=== PATIENT | male | born 1965 | race Caucasian/White ===

== ENCOUNTER 2017-10-27 18:31 | Observation (INO) | payer BC ==
[2017-10-27] MEDS ORDERED: CLINDAMYCIN 600MG/50ML PREMIX 600 MG/50 ML BAG IVPB ONE (18:53)
[2017-10-27] MEDS: ACETAMINOPHEN 500 MG TABLET PO ONE (19:00)
[2017-10-27 19:03] LABS: BASO % 0.4 % (0-6); EOS % 1.7 % (0-6); GRAN % 66.1 % (47-80); HEMOGLOBIN 15.7 gm/dl (14.0-18.0); LYMPH % 19.4 % (16-45); MEAN CELL VOLUME 93.6 fl (81-97); MEAN CORPUSCULAR HEMOGLOBIN 32.6 pg (27-33); MEAN CORPUSCULAR HGB CONC 34.9 g/dl (32-36); MEAN PLATELET VOLUME 9.6 fl (7.4-10.4); MONO % 12.4 % (0-9); PLATELET COUNT 259 K/uL (130-400); RED BLOOD COUNT 4.81 M/uL (4.40-5.70); RED CELL DISTRIBUTION WIDTH 12.8 % (11.5-14.5); WHITE BLOOD COUNT W/O DIFF 10.4 K/uL (4.2-12.2)
[2017-10-27 19:15] LABS: BLOOD UREA NITROGEN 15 mg/dL (6-20); CREATININE 1.1 mg/dL (0.7-1.2); EST GLOMERULAR FILTRATION RATE > 60 mL/min
[2017-10-27 19:18] LABS: GLUCOSE,RANDOM 107 mg/dL (74-109)
[2017-10-27] MEDS ORDERED: DIPHENHYDRAMINE HCL 50 MG/ML VIAL IVP ONE (19:27)
[2017-10-27] MEDS ORDERED: METHYLPREDNISOLONE PF 125MG/VIAL IVP ONE (19:27)
[2017-10-27] MEDS ORDERED: IPRATROPIUM/ALBUTEROL (0.5MG/3MG) NEB INH ONE (19:27)
--- NOTE | 2017-10-27 19:42 | Emergency Department Record ---
History of Present Illness - General Chief complaint: Extremity Problem Stated complaint: LT ELBOW PAIN/SWELLING Time Seen by Provider: 10/27/17 18:42 Source: Patient Mode of Arrival: Ambulatory Limitations: No limitations - History of Present Illness Initial comments: pt fell a week ago scraping his arm. he has since started having more tender ness,swelling and erythema. MD Complaint: Extremity pain, Extremity swelling Onset/Timin -: Week(s) Location: Left, Elbow History of Same: No Radiation: Proximal, Distal Severity scale (1-10): 8 Quality: Aching Consistency: Constant Improves with: Nothing Worsens with: Nothing Associated Symptoms: Fever - Related Data Home Medications Medication Instructions Recorded Confirmed Last Taken Allopurinol 300 mg PO DAILY 10/27/17 10/27/17 Unknown Montelukast Sodium [Singulair] 10 mg PO DAILY 10/27/17 10/27/17 Unknown Allergies Allergy/AdvReac Type Severity Reaction Status Date / Time cephalexin Allergy Mild RASH Verified 10/27/17 18:59 Travel Screening - Travel/Exposure Within Last 30 Days Have you traveled within the last 30 days?: No Review of Systems Reviewed: No additional complaints except as noted below Constitutional: Reports: As per HPI. Denies: Chills, Fever, Malaise, Night sweats, Weakness, Weight change Eyes: Reports: As per HPI. Denies: Eye discharge, Eye pain, Photophobia, Vision change ENT: Reports: As per HPI. Denies: Congestion, Dental pain, Ear pain, Epistaxis , Hearing loss, Throat pain Respiratory: Reports: As per HPI. Denies: Cough, Dyspnea, Hemoptysis, Stridor, Wheezes Cardiovascular: Reports: As per HPI. Denies: Arrhythmia, Chest pain, Dyspnea on exertion, Edema, Murmurs, Orthopnea, Palpitations, Paroxysmal nocturnal dyspnea, Rheumatic Fever, Syncope Endocrine: Reports: As per HPI. Denies: Fatigue, Heat or cold intolerance, Polydipsia, Polyuria Gastrointestinal: Reports: As per HPI. Denies: Abdominal pain, Constipation, Diarrhea, Hematemesis, Hematochezia, Melena, Nausea, Vomiting Genitourinary: Reports: As per HPI. Denies: Dysuria, Frequency, Hematuria, Incontinence, Retention, Testicular pain, Testicular mass, Urgency Musculoskeletal: Reports: As per HPI. Denies: Arthralgia, Back pain, Gout, Joint swelling, Myalgia, Neck pain Skin: Reports: As per HPI. Denies: Bruising, Change in color, Change in hair/ nails, Lesions, Pruritus, Rash Neurological: Reports: As per HPI. Denies: Abnormal gait, Confusion, Headache, Numbness, Paresthesias, Seizure, Tingling, Tremors, Vertigo, Weakness Psychiatric: Reports: As per HPI. Denies: Anxiety, Auditory hallucinations, Depression, Homicidal thoughts, Suicidal thoughts, Visual hallucinations Hematological/Lymphatic: Reports: As per HPI. Denies: Anemia, Blood Clots, Easy bleeding, Easy bruising, Swollen glands Past Medical History - SOCIAL HISTORY Smoking Status: Never smoker Alcohol Use: None Drug Use: None - RESPIRATORY Hx Respiratory Disorders: Yes Comment:: seasonal allergies - CARDIOVASCULAR Hx Cardio Disorders: No - NEURO Hx Neuro Disorders: No - GI Hx GI Disorders: No - Hx Genitourinary Disorders: Yes Hx Kidney Stones: Yes - ENDOCRINE Hx Endocrine Disorders: No - MUSCULOSKELETAL Hx Musculoskeletal Disorders: Yes Hx Gout: Yes - PSYCH Hx Psych Problems: No - HEMATOLOGY/ONCOLOGY Hx Hematology/Oncology Disorders: No Family Medical History Any Significant Family History?: Yes Hx Heart Disease: Father, Mother Hx Resp Disorders: Mother Physical Exam - General General Appearance: Alert, Oriented x3, Cooperative, Mild distress - Head Head exam: Normal inspection - Eye Eye exam: Normal appearance, PERRL, EOMI Pupils: Normal accommodation - ENT ENT exam: Normal exam, Mucous membranes moist, Normal external ear exam, Normal orophraynx Ear exam: Normal external inspection. negative: External canal tenderness Nasal Exam: Normal inspection. negative: Discharge, Sinus tenderness Mouth exam: Normal external inspection, Tongue normal Teeth exam: Normal inspection. negative: Dental caries Throat exam: Normal inspection. negative: Tonsillar erythema, Tonsillar exudate - Neck Neck exam: Normal inspection, Full ROM. negative: Tenderness - Respiratory Respiratory exam: Normal lung sounds bilaterally. negative: Respiratory distress - Cardiovascular Cardiovascular Exam: Regular rate, Normal rhythm, Normal heart sounds - GI/Abdominal GI/Abdominal exam: Soft, Normal bowel sounds. negative: Tenderness - Rectal Rectal exam: Deferred - exam: Deferred - Extremities Extremities exam: Full ROM, Normal capillary refill, Tenderness Image of Full Body: 1 - erythema - Back Back exam: Reports: Normal inspection, Full ROM. Denies: Muscle spasm, Rash noted, Tenderness - Neurological Neurological exam: Alert, CN II-XII intact, Normal gait, Oriented X3 - Psychiatric Psychiatric exam: Normal affect, Normal mood - Skin Skin exam: Dry, Erythema, Intact, Normal color, Rash, Warm Type of lesion: Rash Distribution of rash: LUE Description of rash: Swelling, Tenderness Course Vital Signs 10/27/17 18:35 Temperature 100.3 F H Pulse Rate 80 Respiratory 20 Rate Blood Pressure 132/77 Pulse Ox 96 Medical Decision Making - Lab Data Result diagrams: 10/27/17 18:56 10/27/17 18:56 Lab Results 10/27/17 10/27/17 Range/Units 18:56 18:56 WBC 10.4 (4.2-12.2) K/uL RBC 4.81 (4.40-5.70) M/uL Hgb 15.7 (14.0-18.0) gm/dl Hct 45.0 (42.0-52.0) % MCV 93.6 (81-97) fl MCH 32.6 (27-33) pg MCHC 34.9 (32-36) g/dl RDW 12.8 (11.5-14.5) % Plt Count 259 (130-400) K/uL MPV 9.6 (7.4-10.4) fl Gran % 66.1 (47-80) % Lymphocytes % 19.4 (16-45) % Monocytes % 12.4 H (0-9) % Eosinophils % 1.7 (0-6) % Basophils % 0.4 (0-6) % Sodium 142 (136-145) mmol/L Potassium 4.0 (3.4-4.5) mmol/L Chloride 98 (98-107) mmol/L Carbon Dioxide 29.0 (22-29) mmol/L Anion Gap 15.0 (7-16) BUN 15 (6-20) mg/dL Creatinine 1.1 (0.7-1.2) mg/dL Estimated GFR > 60 mL/min Calcium 9.2 (8.6-10.0) mg/dL Disposition Disposition: Admit Clinical Impression: Cellulitis of arm, left Disposition: Still a Patient at [facility] Decision to Admit: Admit from ER Decision to Admit Date: 10/27/17 Decision to Admit Time: 19:46 Quality - Quality Measures Quality Measures: N/A - Blood Pressure Screening Does Patient Have Any of the Following: No Blood Pressure Classification: Pre-Hypertensive BP Reading Systolic Measurement: 132 Diastolic Measurement: 77 Screening for High Blood Pressure: < Pre-Hypertensive BP, F/U Documented > [ [id number]] Pre-Hypertensive Follow-up Interventions: Follow-up with rescreen every year.
[2017-10-27] MEDS ORDERED: KETOROLAC 30 MG/ML VIAL IVP ONE (19:45)
[2017-10-27] MEDS ORDERED: TEMAZEPAM 15 MG CAPSULE PO PRN (20:38)
[2017-10-27] MEDS ORDERED: ACETAMINOPHEN 500 MG TABLET PO PRN (20:38)
[2017-10-27] MEDS: CLINDAMYCIN 600MG/50ML PREMIX 600 MG/50 ML BAG IVPB SCH (21:52)
[2017-10-28] MEDS: CLINDAMYCIN 600MG/50ML PREMIX 600 MG/50 ML BAG IVPB SCH (04:29)
[2017-10-28] MEDS ORDERED: HYDROCODONE/APAP 5/325MG TABLET PO ONE (08:24)
[2017-10-28] MEDS ORDERED: PIPERACILLIN SODIUM/TAZOBACTAM 4.5 GM in 0.9 % SODIUM CHLORIDE 100ML 100 ML IVPB ONE (09:15)
[2017-10-28] MEDS ORDERED: HYDROCODONE/APAP 5/325MG TABLET PO PRN ×2 (09:38→09:40)
[2017-10-28] MEDS: KETOROLAC 30 MG/ML VIAL IVP PRN ×2 (09:52→18:52)
[2017-10-28] MEDS: MONTELUKAST SODIUM 10MG TABLET PO SCH (09:52)
[2017-10-28] MEDS: ALLOPURINOL 100 MG TAB PO SCH (09:52)
[2017-10-28] MEDS: VANCOMYCIN HCL 1,000 MG in DEXTROSE 5 % IN WATER 250 ML IVPB SCH ×4 (09:53→18:22)
--- NOTE | 2017-10-28 10:17 | History & Physical ---
History of Present Illness - Date of Service Date of Service for History & Physical: 10/28/17 - History of Present Illness Admitting Diagnosis: cellulitis History of Present Illness: 51 yo male admitted for cellulitis left arm. PMH gout and asthma. Pt reports a fall at work 1 wek ago (refused this as a worker's comp), scraped his left arm on the stairs at work. 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 (concerns for aerobic and anaerobic infection) Pt presented to ER wit red, swollen, painful left FA and fever with mild drainage. 100.3F, HR 80, BP 132/77, 96% RA, pain 8/10. WBC 10.4, Hgb 15.7, Hct 45, plt 259 NA 142, K 4, Cl 98, CO2 29, BUN 15, creatinine 1.1, GFR >60, glucose 107 Blood cultures x2, wound culture pending Left FA XR negative for FX or FB (audio clip and xray reviewed) Pt given toradol 30mg IVP in ER and started on Clindamycin 600m IVPB 10/28/17 POC changing r/t concerns for aerobic and anaerobic infection. Pt starting Zosyn 4.5gm q8hr and Vancomycin 1gm q8hr, inpt probably 2 days for IV ABX and then transition to PO for 1 week after d/c. Toradol 30mg IVP q8hr PRN, [place] 5/325 1-2 tab q6 hrPRN for pain Repeat CBC and BMP, vanco trough in the AM, VS q 4 hrs Awaiting culture results. PCP Noel Travel Screening - Travel/Exposure Within Last 30 Days Have you traveled within the last 30 days?: No - Travel/Exposure Within Last Year Have you traveled outside the [place] in the last year?: No Location Detail:: just over a year ago, visited [place] - Additonal Travel Details Have you been exposed to anyone with a communicable illness?: No - Travel Symptoms Symptom Screening: Fever (Subjective), Headache, Weakness, Fatigue Review of Systems Constitutional: Reports: As per HPI, Fever. Denies: Chills, Malaise, Night sweats, Weakness, Weight change Eyes: Reports: As per HPI. Denies: Eye discharge, Eye pain, Photophobia, Vision change ENT: Reports: As per HPI. Denies: Congestion, Dental pain, Ear pain, Epistaxis , Hearing loss, Throat pain Respiratory: Reports: As per HPI. Denies: Cough, Dyspnea, Hemoptysis, Stridor, Wheezes Cardiovascular: Reports: As per HPI. Denies: Arrhythmia, Chest pain, Dyspnea on exertion, Edema, Murmurs, Orthopnea, Palpitations, Paroxysmal nocturnal dyspnea, Rheumatic Fever, Syncope Endocrine: Reports: As per HPI. Denies: Fatigue, Heat or cold intolerance, Polydipsia, Polyuria Gastrointestinal: Reports: As per HPI. Denies: Abdominal pain, Constipation, Diarrhea, Hematemesis, Hematochezia, Melena, Nausea, Vomiting Genitourinary: Reports: As per HPI. Denies: Dysuria, Frequency, Hematuria, Incontinence, Retention, Testicular pain, Testicular mass, Urgency Musculoskeletal: Reports: As per HPI. Denies: Arthralgia, Back pain, Gout, Joint swelling, Myalgia, Neck pain Skin: Reports: As per HPI. Denies: Bruising, Change in color, Change in hair/ nails, Lesions, Pruritus, Rash Neurological: Reports: As per HPI. Denies: Abnormal gait, Confusion, Headache, Numbness, Paresthesias, Seizure, Tingling, Tremors, Vertigo, Weakness Psychiatric: Reports: As per HPI. Denies: Anxiety, Auditory hallucinations, Depression, Homicidal thoughts, Suicidal thoughts, Visual hallucinations Hematological/Lymphatic: Reports: As per HPI. Denies: Anemia, Blood Clots, Easy bleeding, Easy bruising, Swollen glands Past Medical History - SOCIAL HISTORY Smoking Status: Never smoker Alcohol Use: None Drug Use: None - RESPIRATORY Hx Respiratory Disorders: Yes Comment:: seasonal allergies - CARDIOVASCULAR Hx Cardio Disorders: No - NEURO Hx Neuro Disorders: No - GI Hx GI Disorders: No - Hx Genitourinary Disorders: Yes Hx Kidney Stones: Yes - ENDOCRINE Hx Endocrine Disorders: No - MUSCULOSKELETAL Hx Musculoskeletal Disorders: Yes Hx Gout: Yes - PSYCH Hx Psych Problems: No - HEMATOLOGY/ONCOLOGY Hx Hematology/Oncology Disorders: No Family Medical History Any Significant Family History?: Yes Hx Heart Disease: Father, Mother Hx Resp Disorders: Mother H&P Meds/Allergies - Allergies Allergies: Allergies Allergy/AdvReac Type Severity Reaction Status Date / Time cephalexin Allergy Mild RASH Verified 10/27/17 18:59 - Home Medications Home Medications Medication Instructions Recorded Confirmed Last Taken Allopurinol 300 mg PO DAILY 10/27/17 10/27/17 Unknown Montelukast Sodium [Singulair] 10 mg PO DAILY 10/27/17 10/27/17 Unknown - Active Medications Active Medications: Current Medications Hydrocodone Bitart/Acetaminophen ([place] 5mg/325mg) 1 each PO Q6H PRN PRN Reason: PAIN - MILD TO MODERATE (1-7) Stop: 10/31/17 13:00 Hydrocodone Bitart/Acetaminophen ([place] 5mg/325mg) 2 each PO Q6H PRN PRN Reason: PAIN - MOD TO SEVERE (5-10) Stop: 10/31/17 13:00 Allopurinol (Zyloprim) 300 mg PO DAILY [facility] Vancomycin HCl 1,000 mg/ (Dextrose) 250 mls @ 250 mls/hr IVPB Q8H [facility] Stop: 11/02/17 10:01 Piperacillin Sod/Tazobactam (Sod 4.5 gm/ Sodium Chloride) 100 mls @ 200 mls/hr IVPB Q8H [facility]SD[facility] Ketorolac Tromethamine (Toradol) 30 mg IVP Q8H PRN PRN Reason: PAIN - MILD TO MODERATE (1-7) Stop: 10/31/17 13:00 Montelukast Sodium (Singulair) 10 mg PO DAILY [facility] Temazepam (Restoril) 15 mg PO QHS PRN PRN Reason: INSOMNIA Physical Exam - Vital Signs Vital Signs: Vital Signs - Last 24 Hrs Temp Pulse Pulse Resp BP BP Pulse Ox 10/28/17 04:00 99 F 62 18 120/70 95 10/27/17 21:00 72 18 10/27/17 20:02 100.1 F H 72 18 142/81 94 L 10/27/17 20:01 100.0 F H 72 20 152/79 96 10/27/17 18:35 100.3 F H 80 20 132/77 96 - General General Appearance: Alert, Oriented x3, Cooperative, Mild distress Limitations: No limitations - Head Head exam: Normal inspection - Eye Eye exam: Normal appearance, PERRL, EOMI Pupils: Normal accommodation - ENT ENT exam: Normal exam, Mucous membranes moist, Normal external ear exam, Normal orophraynx Ear exam: Normal external inspection. negative: External canal tenderness Nasal Exam: Normal inspection. negative: Discharge, Sinus tenderness Mouth exam: Normal external inspection, Tongue normal Teeth exam: Normal inspection. negative: Dental caries Throat exam: Normal inspection. negative: Tonsillar erythema, Tonsillar exudate - Neck Neck exam: Normal inspection, Full ROM. negative: Tenderness - Respiratory Respiratory exam: Normal lung sounds bilaterally. negative: Respiratory distress - Cardiovascular Cardiovascular Exam: Regular rate, Normal rhythm, Normal heart sounds Peripheral Pulses: 2+: Radial (R), Radial (L) - GI/Abdominal GI/Abdominal exam: Soft, Normal bowel sounds. negative: Tenderness - Rectal Rectal exam: Deferred - exam: Deferred - Extremities Extremities exam: Full ROM, Normal capillary refill, Tenderness - Back Back exam: Reports: Normal inspection, Full ROM. Denies: Muscle spasm, Rash noted, Tenderness - Neurological Neurological exam: Alert, CN II-XII intact, Normal gait, Oriented X3 - Psychiatric Psychiatric exam: Normal affect, Normal mood - Skin Skin exam: Dry, Erythema, Intact, Normal color, Warm Type of lesion: abrasion (left FA, ant and post), Rash Distribution of rash: LUE Description of rash: Erythematous, Swelling, Tenderness Results - Labs Result Diagrams: 10/27/17 18:56 10/27/17 18:56 Labs Last 24 Hours: Laboratory Results - last 24 hr 10/27/17 10/27/17 18:56 18:56 WBC 10.4 RBC 4.81 Hgb 15.7 Hct 45.0 MCV 93.6 MCH 32.6 MCHC 34.9 RDW 12.8 Plt Count 259 MPV 9.6 Gran % 66.1 Lymphocytes % 19.4 Monocytes % 12.4 H Eosinophils % 1.7 Basophils % 0.4 Sodium 142 Potassium 4.0 Chloride 98 Carbon Dioxide 29.0 Anion Gap 15.0 BUN 15 Creatinine 1.1 Estimated GFR > 60 Random Glucose 107 Calcium 9.2 VTE H&P Assessment - Risk for VTE Risk for VTE: Yes Risk Level: Low Risk Assessment Date: 10/28/17 Risk Assessment Time: 10:20 VTE Orders Placed or Will Be Placed: Yes Plan - Detailed Diagnosis and Plan (1) Cellulitis of arm, left Current Visit: Yes Status: Acute Base Code: L03.114 - CELLULITIS OF LEFT UPPER LIMB Comment: 10/28/17 -Cellulitis of left forearm -mild discharge, moderate edema, erythema, warmth and tenderness -area marked with skin marker, maintain elevation -IV ABX changed from clindamycin to Zosyn 4.5gm q8 and Vancomycin 1gm q8 r/t potential aerobic and anaerobic bacteria from water treatement plant (2) Full code status Current Visit: Yes Status: Acute Base Code: Z78.9 - OTHER SPECIFIED HEALTH STATUS Comment: 10/28/17 full code status
--- NOTE | 2017-10-28 10:28 | Inpatient Certification ---
Inpatient Certification Admit to inpatient care: Based on my medical assessment, after consideration of patient's risk factors (age, co-morbidities and patient presenting symptoms and acuity), I expect that this patient will remain in the hospital greater than or equal to two midnights and that the services needed warrant inpatient care because: Patient Risk Factors: cellulitis requiring IV ABX Estimated length of stay: The patient may reasonably be expected to be discharged or transferred to a hospital within 96 hours after admission to [facility]. Services needed: IV abx administration, wound assessment, repeat labs Post hospital care (if known): [] I certify that my determination is in accordance with my understanding of Medicare requirements for reasonable and necessary inpatient services. 10/28/17 10:25
[2017-10-28] MEDS: PIPERACILLIN SODIUM/TAZOBACTAM 4.5 GM in 0.9 % SODIUM CHLORIDE 100ML 100 ML IVPB SCH (17:43)
[2017-10-28] MEDS ORDERED: ACETAMINOPHEN 500 MG TABLET PO PRN (17:45)
[2017-10-28] MEDS: ACETAMINOPHEN 500 MG TABLET PO ONE (17:46)
[2017-10-29] MEDS: PIPERACILLIN SODIUM/TAZOBACTAM 4.5 GM in 0.9 % SODIUM CHLORIDE 100ML 100 ML IVPB SCH ×3 (01:11→18:23)
[2017-10-29] MEDS: VANCOMYCIN HCL 1,000 MG in DEXTROSE 5 % IN WATER 250 ML IVPB SCH ×6 (01:57→19:05)
[2017-10-29] MEDS: ALLOPURINOL 100 MG TAB PO SCH (09:20)
[2017-10-29 09:47] LABS: BASO % 0.5 % (0-6); EOS % 3.2 % (0-6); GRAN % 65.5 % (47-80); HEMATOCRIT 46.9 % (42.0-52.0); HEMOGLOBIN 16.2 gm/dl (14.0-18.0); LYMPH % 21.5 % (16-45); MEAN CORPUSCULAR HEMOGLOBIN 32.5 pg (27-33); MEAN CORPUSCULAR HGB CONC 34.5 g/dl (32-36); MEAN PLATELET VOLUME 9.3 fl (7.4-10.4); MONO % 9.3 % (0-9); PLATELET COUNT 270 K/uL (130-400); RED BLOOD COUNT 4.99 M/uL (4.40-5.70); RED CELL DISTRIBUTION WIDTH 12.9 % (11.5-14.5); WHITE BLOOD COUNT W/O DIFF 6.5 K/uL (4.2-12.2)
--- NOTE | 2017-10-29 09:52 | Physician Progress Note ---
Subjective - Date Date of Physician Progress Note: 10/30/17 - Subjective Location: Left, Upper extremity Radiation: Non-Radiating Objective - Vital Signs Vital Signs: Vital Signs - Last 24 Hrs Temp Pulse Resp BP Pulse Ox 10/29/17 09:12 98.1 F 70 18 126/70 97 10/29/17 06:00 97.7 F 57 L 18 128/84 96 10/29/17 01:00 98.1 F 56 L 18 110/66 96 10/28/17 20:00 97.7 F 64 18 135/70 97 10/28/17 18:00 98.0 F 78 18 138/72 96 10/28/17 14:00 98.1 F 82 18 144/76 98 10/28/17 10:00 97.8 F 86 18 134/68 97 - General General Appearance: Alert, Oriented x3, Cooperative, No acute distress Limitations: No limitations - Head Head exam: Normal inspection - Eye Eye exam: Normal appearance, PERRL, EOMI Pupils: Normal accommodation - ENT ENT exam: Normal exam, Mucous membranes moist, Normal external ear exam, Normal orophraynx Ear exam: Normal external inspection. negative: External canal tenderness Nasal Exam: Normal inspection. negative: Discharge, Sinus tenderness Mouth exam: Normal external inspection, Tongue normal Teeth exam: Normal inspection. negative: Dental caries Throat exam: Normal inspection. negative: Tonsillar erythema, Tonsillar exudate - Neck Neck exam: Normal inspection, Full ROM. negative: Tenderness - Respiratory Respiratory exam: Normal lung sounds bilaterally. negative: Respiratory distress - Cardiovascular Cardiovascular Exam: Regular rate, Normal rhythm, Normal heart sounds Peripheral Pulses: 2+: Radial (R), Radial (L) - GI/Abdominal GI/Abdominal exam: Soft, Normal bowel sounds. negative: Tenderness - Rectal Rectal exam: Deferred - exam: Deferred - Extremities Extremities exam: Full ROM, Normal capillary refill, Tenderness - Back Back exam: Reports: Normal inspection, Full ROM. Denies: Muscle spasm, Rash noted, Tenderness - Neurological Neurological exam: Alert, CN II-XII intact, Normal gait, Oriented X3 - Psychiatric Psychiatric exam: Normal affect, Normal mood - Skin Skin exam: Dry, Erythema, Intact, Normal color, Warm Type of lesion: abrasion (left FA, ant and post), Rash Distribution of rash: LUE Description of rash: Erythematous, Swelling, Tenderness - Other Other Exam Information: repeat examination of left FA shows improvement in erythema, swelling and pain. Drainage has decreased in the past 24 hours. Pt is tolerating IV ABX. Erythema has receded well behind the previous skin markings, mild redness and warmth remains. Assessment and Plan - Assessment and Plan (1) Cellulitis of arm, left Current Visit: Yes Status: Acute Base Code: L03.114 - CELLULITIS OF LEFT UPPER LIMB Comment: 10/28/17 -Cellulitis of left forearm -mild discharge, moderate edema, erythema, warmth and tenderness -area marked with skin marker, maintain elevation -IV ABX changed from clindamycin to Zosyn 4.5gm q8 and Vancomycin 1gm q8 r/t 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 -if tolerant of the PO abx and continued improvment in symptoms, d/c tomorrow AM 10/30/17 -pt continues to improve but mild erythema and swelling remains on lateral FA -pt has normal ROM, no tingling -preliminary BC results have no growth, wound culture klebsiella -AM dose of Zosyn IV ABX and then d/c with augmentin and bactrim BID x14 days ( pt has tolerated both meds previously), d/c vanco r/t culture results -f/u with new PCP [facility] 11/25/17 (2) Full code status Current Visit: Yes Status: Acute Base Code: Z78.9 - OTHER SPECIFIED HEALTH STATUS Comment: 10/30/17 full code status Results - Labs Result Diagrams: 10/29/17 09:40 10/29/17 09:40 DVT/PE Assessment - Risk for VTE Risk for VTE: No Risk Level: Low Risk Assessment Date: 10/28/17 Risk Assessment Time: 10:20 VTE Orders Placed or Will Be Placed: Yes - Active Medicaitons Current Medications: Current Medications Acetaminophen (Tylenol 500mg Tab) 500 mg PO Q6H PRN PRN Reason: PAIN - MILD (1-4) Stop: 10/31/17 13:00 Hydrocodone Bitart/Acetaminophen ([place] 5mg/325mg) 1 each PO Q6H PRN PRN Reason: PAIN - MILD TO MODERATE (1-7) Stop: 10/31/17 13:00 Hydrocodone Bitart/Acetaminophen ([place] 5mg/325mg) 2 each PO Q6H PRN PRN Reason: PAIN - MOD TO SEVERE (5-10) Stop: 10/31/17 13:00 Allopurinol (Zyloprim) 300 mg PO DAILY [facility] Last Admin: 10/29/17 09:20 Dose: 300 mg Enoxaparin Sodium (Lovenox) 40 mg SQ DAILY [facility] Vancomycin HCl 1,000 mg/ (Dextrose) 250 mls @ 250 mls/hr IVPB Q8H [facility] Stop: 11/02/17 10:01 Last Infusion: 10/29/17 04:17 Dose: Infused Piperacillin Sod/Tazobactam (Sod 4.5 gm/ Sodium Chloride) 100 mls @ 200 mls/hr IVPB Q8H [facility] Last Admin: 10/29/17 09:21 Dose: 200 mls/hr Ketorolac Tromethamine (Toradol) 30 mg IVP Q8H PRN PRN Reason: PAIN - MILD TO MODERATE (1-7) Stop: 10/31/17 13:00 Last Admin: 10/28/17 18:52 Dose: 30 mg Montelukast Sodium (Singulair) 10 mg PO DAILY [facility] Last Admin: 10/28/17 09:52 Dose: 10 mg Temazepam (Restoril) 15 mg PO QHS PRN PRN Reason: INSOMNIA AMI Plan - Labs Result Diagrams: 10/29/17 09:40 10/29/17 09:40
[2017-10-29 10:14] LABS: BLOOD UREA NITROGEN 15 mg/dL (6-20); CREATININE 0.9 mg/dL (0.7-1.2); EST GLOMERULAR FILTRATION RATE > 60 mL/min; GLUCOSE,RANDOM 130 mg/dL (74-109); VANCOMYCIN TROUGH 11.6 ug/mL (5.0-10.0)
[2017-10-29] MEDS: MONTELUKAST SODIUM 10MG TABLET PO SCH (10:59)
[2017-10-29] MEDS: ENOXAPARIN 40 MG/0.4 ML SYR SQ SCH (11:00)
[2017-10-29] MEDS: KETOROLAC 30 MG/ML VIAL IVP PRN (12:53)
[2017-10-30] MEDS: PIPERACILLIN SODIUM/TAZOBACTAM 4.5 GM in 0.9 % SODIUM CHLORIDE 100ML 100 ML IVPB SCH ×2 (01:39→09:18)
[2017-10-30] MEDS: KETOROLAC 30 MG/ML VIAL IVP PRN (01:40)
[2017-10-30] MEDS: VANCOMYCIN HCL 1,000 MG in DEXTROSE 5 % IN WATER 250 ML IVPB SCH ×2 (02:18)
--- NOTE | 2017-10-30 09:02 | Discharge Summary ---
Providers Discharge Summary Date: 10/30/17 Date of admission: 10/27/17 20:24 Expected Date of Discharge: 10/30/17 Attending physician: MAMIE CASTILLO Primary care physician: HAYDEN VENTURA II, D.O. Physical Exam - Vital Signs Vital Signs: Vital Signs - Last 24 Hrs Temp Pulse Resp BP Pulse Ox 10/30/17 08:01 61 16 10/30/17 06:00 98.1 F 59 L 16 114/75 97 10/29/17 22:00 98.3 F 63 16 127/76 98 10/29/17 18:00 97.7 F 63 16 131/79 99 10/29/17 14:00 97.9 F 61 18 136/76 97 10/29/17 09:12 98.1 F 70 18 126/70 97 - General General Appearance: Alert, Oriented x3, Cooperative, No acute distress Limitations: No limitations - Head Head exam: Normal inspection - Eye Eye exam: Normal appearance, PERRL, EOMI Pupils: Normal accommodation - ENT ENT exam: Normal exam, Mucous membranes moist, Normal external ear exam, Normal orophraynx Ear exam: Normal external inspection. negative: External canal tenderness Nasal Exam: Normal inspection. negative: Discharge, Sinus tenderness Mouth exam: Normal external inspection, Tongue normal Teeth exam: Normal inspection. negative: Dental caries Throat exam: Normal inspection. negative: Tonsillar erythema, Tonsillar exudate - Neck Neck exam: Normal inspection, Full ROM. negative: Tenderness - Respiratory Respiratory exam: Normal lung sounds bilaterally. negative: Respiratory distress - Cardiovascular Cardiovascular Exam: Regular rate, Normal rhythm, Normal heart sounds Peripheral Pulses: 2+: Radial (R), Radial (L) - GI/Abdominal GI/Abdominal exam: Soft, Normal bowel sounds. negative: Tenderness - Rectal Rectal exam: Deferred - exam: Deferred - Extremities Extremities exam: Full ROM, Normal capillary refill, Tenderness - Back Back exam: Reports: Normal inspection, Full ROM. Denies: Muscle spasm, Rash noted, Tenderness - Neurological Neurological exam: Alert, CN II-XII intact, Normal gait, Oriented X3 - Psychiatric Psychiatric exam: Normal affect, Normal mood - Skin Skin exam: Dry, Erythema, Intact, Normal color, Warm Type of lesion: abrasion (left FA, ant and post), Rash Distribution of rash: LUE Description of rash: Erythematous, Swelling, Tenderness Hospitalization - Hospitalization Admission Diagnosis: cellulitis - Problem List/Discharge Diagnosis (1) Cellulitis of arm, left Current Visit: Yes Status: Acute Base Code: L03.114 - CELLULITIS OF LEFT UPPER LIMB Comment: 10/28/17 -Cellulitis of left forearm -mild discharge, moderate edema, erythema, warmth and tenderness -area marked with skin marker, maintain elevation -IV ABX changed from clindamycin to Zosyn 4.5gm q8 and Vancomycin 1gm q8 r/t 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 -if tolerant of the PO abx and continued improvment in symptoms, d/c tomorrow AM 10/30/17 -pt continues to improve but mild erythema and swelling remains on lateral FA -pt has normal ROM, no tingling -preliminary BC results have no growth, wound culture klebsiella and enterococcus -AM dose of Zosyn and vanco IV ABX and then d/c with augmentin and bactrim BID x14 days (pt has tolerated both meds previously) -f/u with new PCP [facility] 11/25/17 (2) Full code status Current Visit: Yes Status: Acute Base Code: Z78.9 - OTHER SPECIFIED HEALTH STATUS Comment: 10/30/17 full code status - Disposition Keep the wound clean and dry. Covered at all times when at work, change twice a day and as needed if saturated. Follow up/new pt appt November 25 [facility] If you have increased redness, swelling, pain, odor, or more drainage be seen immediately. Your preliminary wound culture results show klebsiella pneumoniae, this bacteria is usually found in the intestines. 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 The antibiotics Augmentin and Bactrim have been shown to be successful in the treatment of this kind of infection. - Hospitalization Course Disposition: Home, Self-Care Hospital Course: 51 yo male admitted for cellulitis left arm. PMH gout and asthma. Pt reports a fall at work 1 wek ago (refused this as a worker's comp), scraped his left arm on the stairs at work. 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 (concerns for aerobic and anaerobic infection) Pt presented to ER wit red, swollen, painful left FA and fever with mild drainage. 100.3F, HR 80, BP 132/77, 96% RA, pain 8/10. WBC 10.4, Hgb 15.7, Hct 45, plt 259 NA 142, K 4, Cl 98, CO2 29, BUN 15, creatinine 1.1, GFR >60, glucose 107 Blood cultures x2, wound culture pending Left FA XR negative for FX or FB (audio clip and xray reviewed) Pt given toradol 30mg IVP in ER and started on Clindamycin 600m IVPB 10/28/17 POC changing r/t concerns for aerobic and anaerobic infection. Pt starting Zosyn 4.5gm q8hr and Vancomycin 1gm q8hr, inpt probably 2 days for IV ABX and then transition to PO for 1 week after d/c. Toradol 30mg IVP q8hr PRN, [place] 5/325 1-2 tab q6 hrPRN for pain Repeat CBC and BMP, vanco trough in the AM, VS q 4 hrs Awaiting culture results. PCP [facility] Procedures: Imaging and X-Rays 10/27/17 18:58 FOREARM, LEFT [RAD] Stat Abnormal Labs: Abnormal Lab Results 10/27/17 10/29/17 10/29/17 Range/Units 18:56 09:40 09:40 Monocytes % 12.4 H 9.3 H (0-9) % Random Glucose 130 H (74-109) mg/dL Vancomycin Trough 11.6 H (5.0-10.0) ug/mL Condition at Discharge: (2) Stable Discharge Diagnosis: cellulitis-klebsiella pneumoniae and entercoccus Discharge Medications - Discharge Medications Prescriptions: Amoxicillin/Potassium Clav [Augmentin 875-125 Tablet] 1 each PO BID 14 Days #28 tablet Famotidine [Pepcid] 20 mg PO DAILY #30 tablet Sulfamethoxazole/Trimethoprim [Bactrim Ds Tablet] 1 each PO BID 14 Days #28 tablet Home Medications: Ambulatory Orders Allopurinol 300 mg PO DAILY 10/27/17 [Last Taken Unknown] Montelukast Sodium [Singulair] 10 mg PO DAILY 10/27/17 [Last Taken Unknown] Amoxicillin/Potassium Clav [Augmentin 875-125 Tablet] 1 each PO BID 14 Days #28 tablet 10/29/17 [Last Taken Unknown] Famotidine [Pepcid] 20 mg PO DAILY #30 tablet 10/29/17 [Last Taken Unknown] Sulfamethoxazole/Trimethoprim [Bactrim Ds Tablet] 1 each PO BID 14 Days #28 tablet 10/29/17 [Last Taken Unknown] Acetaminophen [Tylenol 500Mg Tab] 500 mg PO Q6H PRN tablet 10/30/17 [Last Taken Unknown] Discharge Plan - Discharge Instructions Activity at Discharge: Increase Activity as Tolerated Diet at Discharge: Regular Diet Wound Primary Dressing Type: Gauze Roll/Wrap Quality Measures - Quality Measures Quality Measures: Documentation of Current Medications in Medical Record, Screening for High Blood Pressure and F/U Documented - Current Medications Quality Measure: Measure #130: Documentation of Current Medications Documentation of Current Medications: <Current Medications Documented/Reviewed> [G8427] - Blood Pressure Screening Quality Measure: Screening for High Blood Pressure and Follow-Up Documented Does Patient Have Any of the Following: No Blood Pressure Classification: Pre-Hypertensive BP Reading Systolic Measurement: 132 Diastolic Measurement: 77 Screening for High Blood Pressure: < Pre-Hypertensive BP, F/U Documented > [ G8950] Pre-Hypertensive Follow-up Interventions: Referral to alternative/primary care provider. - Elder Abuse Suspicion Index EASI Reference Information: Adenike WHITESIDE, Kaden C, Cari D, Zoraida Alford.Development and validation of a tool to assist physicians identification of elder abuse: The Elder Abuse Suspicion Index (EASI ). Journal of Elder Abuse and Neglect, 2008; 20 (3): 276-300.
[2017-10-30] MEDS ORDERED: VANCOMYCIN HCL 1,000 MG in 0.9 % SODIUM CHLORIDE 250ML 250 ML IVPB ONE (10:22)
[2017-10-30] MEDS: ALLOPURINOL 100 MG TAB PO SCH (10:27)
[2017-10-30] MEDS: ENOXAPARIN 40 MG/0.4 ML SYR SQ SCH (10:28)
[2017-10-30] MEDS: MONTELUKAST SODIUM 10MG TABLET PO SCH (10:30)
--- NOTE | 2017-10-31 13:08 | RADIOLOGY REPORT ---
DATE: 10/27/2017. EXAM: LEFT FOREARM. HISTORY: Injury. TECHNIQUE: Two views of the left forearm. COMPARISON: None. FINDINGS: Osteopenia. Diffuse soft tissue swelling. Negative for acute fracture or dislocation. Joint spaces are preserved. IMPRESSION: DIFFUSE SOFT TISSUE SWELLING. NO ACUTE OSSEOUS ABNORMALITY. JOB NUMBER: [id number] MTDD
== END 2017-10-30 12:58 | disposition home or self-care (01) ==
LOC: ER 18:31 → OBSVTOIN 20:24 → MEDSURG 20:24 → INTOOBSV 20:24
PROVIDERS: ADMIT Internal Medicine; ATTEND Internal Medicine
DX: L03.114 Cellulitis of left upper limb (principal); Z78.9 Other specified health status
CPT/HCPCS: 80048; 80202; 85025; 96365; 99217; 99220; 99225; 99285; J1650; J1885; J2543; J7050; J7060

== ENCOUNTER 2018-02-12 10:03 | Emergency (ER) | payer BC ==
--- NOTE | 2018-02-12 10:21 | Emergency Department Record ---
History of Present Illness - General Chief Complaint: Animal Bite Stated Complaint: LT LEG ANIMAL WOUND Time Seen by Provider: 02/12/18 10:07 Source: Patient, Family Mode of Arrival: Ambulatory Limitations: No limitations - History of Present Illness Initial Comments: 52 yo male presents with an injury to his left lower leg. He owns a house hold pet pig. His pig has large, sharp protruding tusks. His pig turned and lacerated his left serrano. His last tetanus was 3 years ago. The pig is healthy , up to date on immunizations. The pig tusks are very sharp due to daily grinding. The tusks are situated outside the mouth. He has been cut in the past and states he is considering having them removed but has not yet. No weakness, numbness or tingling distally. MD Complaint: Animal-related injury -: Minutes(s) Left: Lower Leg Animal: Other (Pig) Description: Household pet Mechanism: Bite, Scratch Pain Description: Sharp Context: Other (accident as the animal turned) Associated Symptoms: None Treatments Prior to Arrival: Wound dressing(s) - Related Data Home Medications Medication Instructions Recorded Confirmed Last Taken Naproxen Sodium [Aleve] 2 tab PO Q12HR PRN 02/12/18 02/12/18 Unknown Previous Rx's Medication Instructions Recorded Acetaminophen [Tylenol 500Mg Tab] 500 mg PO Q6H PRN tablet 10/30/17 Amoxicillin/Potassium Clav 1 tab PO BID #14 tab 02/12/18 [Augmentin 875-125 Tablet] Ondansetron [Zofran Odt] 4 mg PO NOW #15 tab.rapdis 02/12/18 Allergies Allergy/AdvReac Type Severity Reaction Status Date / Time cephalexin Allergy Mild RASH Verified 02/12/18 10:08 Review of Systems Constitutional: Denies: Chills, Fever Eyes: Denies: Eye discharge, Eye pain ENT: Denies: Congestion, Throat pain Respiratory: Denies: Cough Cardiovascular: Denies: Chest pain, Syncope Endocrine: Denies: Fatigue Gastrointestinal: Denies: Diarrhea, Nausea, Vomiting Genitourinary: Denies: Hematuria Musculoskeletal: Reports: Myalgia. Denies: Arthralgia, Back pain Skin: Denies: Bruising, Change in color, Rash Neurological: Denies: Headache Psychiatric: Denies: Anxiety Hematological/Lymphatic: Denies: Blood Clots, Easy bleeding, Easy bruising Past Medical History - SOCIAL HISTORY Smoking Status: Never smoker Drug Use: None - RESPIRATORY Hx Respiratory Disorders: Yes Comment:: seasonal allergies - CARDIOVASCULAR Hx Cardio Disorders: No - NEURO Hx Neuro Disorders: No - GI Hx GI Disorders: No - Hx Genitourinary Disorders: Yes Hx Kidney Stones: Yes - ENDOCRINE Hx Endocrine Disorders: No - MUSCULOSKELETAL Hx Musculoskeletal Disorders: Yes Hx Gout: Yes - PSYCH Hx Psych Problems: No - HEMATOLOGY/ONCOLOGY Hx Hematology/Oncology Disorders: No Family Medical History Hx Heart Disease: Father, Mother Hx Resp Disorders: Mother Physical Exam - General General Appearance: Alert, Oriented x3, Cooperative, No acute distress Limitations: No limitations - Head Head exam: Atraumatic - Eye Eye exam: Normal appearance - ENT ENT exam: Normal exam Ear exam: Normal external inspection Nasal Exam: Normal inspection Mouth exam: Normal external inspection - Extremities Extremities exam: Full ROM, Normal capillary refill. negative: Normal inspection, Joint swelling, Tenderness Image of Full Body: 1 - 4cm linear laceration, clean, no FB - Neurological Neurological exam: Alert, Oriented X3. negative: Motor sensory deficit - Psychiatric Psychiatric exam: Normal affect, Normal mood - Skin Type of lesion: Laceration Course - Reevaluation(s) Reevaluation #1: The wound was immediately irrigated with NS and ShurClens Tetanus is up to date at 3 years Healthy house hold pet pig with up to date immunizations Accidental injury. No aggression by the animal After the initial cleaning and irrigation, we discussed at length risks of infection He will be irrigated again after X-rays, Antibiotics provided and loose closure due to the gaping nature of the wound Xray was read as no bony injury or FB PROCEDURE: 4 cm laceration of the left leg Wound was cleaned and prepped in sterile fashion, no residual FB identified on examination. The wound was copiously irrigated with NS and Shurclens a second time Wound was anesthetized with 3 mL of 1% Lidocaine with epinephrine and 3ml of Bupivacaine Plain The laceration was repaired with 3-0 sutures in interrupted fashion. 5 Sutures loosely approximating the wound Patient tolerated the procedure well without complications. We discussed home care, reasons for immediate return if any concerns, and suture removal in 14 days We discussed signs of infection and reasons for immediate return to the ED for evaluation. 02/12/18 10:20 Disposition Disposition: Discharge Clinical Impression: Leg laceration, Bitten by pig Disposition: Home, Self-Care Return To Work/School Note Provided: Yes Condition: (1) Good Instructions: Animal Bite (ED) Additional Instructions: Return immediately if the area is warm, red, pus, or ANY concerns about infection Take the antibiotic twice daily for one week Tylenol or Motrin You may shower but then keep the wound dry, clean and covered Prescriptions: Amoxicillin/Potassium Clav [Augmentin 875-125 Tablet] 1 tab PO BID #14 tab Ondansetron [Zofran Odt] 4 mg PO NOW #15 tab.rapdis Forms: Patient Portal Access Time of Disposition: 11:13 Quality - Quality Measures Quality Measures: N/A - Blood Pressure Screening Does Patient Have Any of the Following: No Blood Pressure Classification: Hypertensive Reading Systolic Measurement: 154 Diastolic Measurement: 90 Screening for High Blood Pressure: < Pre-Hypertensive BP, F/U Documented > [ G8950] Pre-Hypertensive Follow-up Interventions: Referral to alternative/primary care provider.
[2018-02-12] MEDS ORDERED: AMOXICILLIN/POTASSIUM CLAV 875MG/125MG TABLET PO ONE (10:22)
--- NOTE | 2018-02-14 07:52 | RADIOLOGY REPORT ---
EXAM: LEFT TIBIA AND FIBULA, TWO VIEWS HISTORY: PATIENT HAS LOCALIZED PAIN AND TENDERNESS OVER THE LEFT LOWER LEG. TECHNIQUE: Two views of the left tibia and fibula are provided without comparison examinations. FINDINGS: There is no radiographic evidence of a fracture or dislocation of the left tibia and fibula. No significant soft tissue swelling is noted. No radiopaque foreign bodies are identified. Osteoarthritic changes of the left knee are noted. IMPRESSION: OSTEOARTHRITIC CHANGES OF THE LEFT KNEE ARE NOTED. THERE IS NO RADIOGRAPHIC EVIDENCE OF AN ACUTE PROCESS INVOLVING THE LEFT TIBIA AND FIBULA. NO RADIOPAQUE FOREIGN BODIES ARE IDENTIFIED. JOB NUMBER: [id number] MTDD
== END 2018-02-12 11:21 | disposition home or self-care (01) ==
LOC: ER 10:03
DX: S81.812A Laceration without foreign body, left lower leg, initial encounter (principal); W55.42XA Struck by pig, initial encounter; Y92.009 Unspecified place in unspecified non-institutional (private) residence as the place of occurrence of the external cause
CPT/HCPCS: 12032; 99283; 99284

== ENCOUNTER 2018-02-14 15:54 | Emergency (ER) | payer BC ==
[2018-02-14] MEDS ORDERED: VANCOMYCIN HCL 1,000 MG in 0.9 % SODIUM CHLORIDE 250ML 250 ML IVPB ONE (16:05)
--- NOTE | 2018-02-14 16:38 | Emergency Department Record ---
History of Present Illness - General Chief Complaint: Wound, check Stated Complaint: lac lower lt leg Time Seen by Provider: 02/14/18 16:00 Source: Patient Mode of arrival: Ambulatory Limitations: No limitations - History of Present Illness Initial Comments: Pt with concern for infected wound ot left leg. Pet Pig bite wound to left anterior tibia with sutures placed here 2 days ago. On Augmentin BID since injury. Now redness to lower leg and some drainage from the wound. No fever, no DM. Onset/Timin -: Days(s) Initial Visit For: Animal bite, Laceration Returns Today for: Wound recheck Symptoms Since Prior Visit: Worsening redness, Worsening swelling - Related Data Previous Rx's Medication Instructions Recorded Acetaminophen [Tylenol 500Mg Tab] 500 mg PO Q6H PRN tablet 10/30/17 Amoxicillin/Potassium Clav 1 tab PO BID #14 tab 02/12/18 [Augmentin 875-125 Tablet] Ondansetron [Zofran Odt] 4 mg PO NOW #15 tab.rapdis 02/12/18 Sulfamethoxazole/Trimethoprim 1 each PO BID 10 Days #20 tablet 02/14/18 [Bactrim Ds Tablet] Allergies Allergy/AdvReac Type Severity Reaction Status Date / Time cephalexin Allergy Mild RASH Verified 02/14/18 16:00 Travel Screening - Travel/Exposure Within Last 30 Days Have you traveled within the last 30 days?: No - Travel/Exposure Within Last Year Have you traveled outside the [place] in the last year?: No - Additonal Travel Details Have you been exposed to anyone with a communicable illness?: No - Travel Symptoms Symptom Screening: None Review of Systems Constitutional: Denies: Chills, Fever Eyes: Denies: Eye discharge, Photophobia ENT: Denies: Congestion Respiratory: Denies: Cough, Dyspnea Cardiovascular: Denies: Arrhythmia, Chest pain Endocrine: Denies: Fatigue, Polydipsia, Polyuria Gastrointestinal: Denies: Abdominal pain Musculoskeletal: Denies: Arthralgia, Back pain Skin: Reports: As per HPI, Rash. Denies: Bruising Neurological: Denies: Abnormal gait Psychiatric: Denies: Anxiety Hematological/Lymphatic: Denies: Anemia Past Medical History - SOCIAL HISTORY Smoking Status: Never smoker Alcohol Use: None Drug Use: None - RESPIRATORY Hx Respiratory Disorders: Yes Comment:: seasonal allergies - CARDIOVASCULAR Hx Cardio Disorders: No - NEURO Hx Neuro Disorders: No - GI Hx GI Disorders: No - Hx Genitourinary Disorders: Yes Hx Kidney Stones: Yes - ENDOCRINE Hx Endocrine Disorders: No - MUSCULOSKELETAL Hx Musculoskeletal Disorders: Yes Hx Gout: Yes - PSYCH Hx Psych Problems: No - HEMATOLOGY/ONCOLOGY Hx Hematology/Oncology Disorders: No Family Medical History Any Significant Family History?: Yes Hx Heart Disease: Father, Mother Hx Resp Disorders: Mother Physical Exam - General General Appearance: Alert, Oriented x3, Cooperative, No acute distress - Head Head exam: Normal inspection - Eye Eye exam: Normal appearance, PERRL Pupils: Normal accommodation - ENT ENT exam: Normal exam Ear exam: Normal external inspection Nasal Exam: Normal inspection. negative: Discharge, Sinus tenderness Mouth exam: Normal external inspection, Tongue normal - Neck Neck exam: Normal inspection, Full ROM. negative: Lymphadenopathy, Tenderness - Respiratory Respiratory exam: Normal lung sounds bilaterally. negative: Respiratory distress, Rhonchi - Cardiovascular Cardiovascular Exam: Regular rate, Normal rhythm, Normal heart sounds Peripheral Pulses: 2+: Dorsalis Pedis (R), Dorsalis Pedis (L) - GI/Abdominal GI/Abdominal exam: Soft, Normal bowel sounds. negative: Tenderness - Extremities Extremities exam: Full ROM. negative: Calf tenderness, Joint swelling (left anterior tibia with erythema and wwarmth, tender tpo touch. Laceration with sutures intact and no drainage noted. ) Image of Full Body: 1 - local erythema and warmth, incision intact with 5 sutures, no drainage - Back Back exam: Reports: Normal inspection - Neurological Neurological exam: Alert, Normal gait, Oriented X3 - Psychiatric Psychiatric exam: Normal affect. negative: Anxious - Skin Skin exam: Erythema, Warm (left anterior tibia) Course Vital Signs 02/14/18 15:55 Temperature 98.9 F Pulse Rate 73 Respiratory 16 Rate Blood Pressure 152/90 Pulse Ox 98 - Reevaluation(s) Reevaluation #1: 02/14/18 17:27 IV AB given labs done. Plan for home with continued Augmentin and adding Bactrim. Recheck here in 24 hours. Reevaluation #2: 02/14/18 17:46 Epressed my wish for him to recheck here tomorrow WITHOUT FAIL> Medical Decision Making - Lab Data Result diagrams: 02/14/18 17:20 02/14/18 16:02 Disposition Disposition: Discharge Clinical Impression: Cellulitis of left lower extremity without foot Disposition: Home, Self-Care Condition: (2) Stable Instructions: Wound Infection (ED) Additional Instructions: RECHECK HERE IN 24 HOURS WITHOUT FAIL. SOONER IF WORSE. Prescriptions: Sulfamethoxazole/Trimethoprim [Bactrim Ds Tablet] 1 each PO BID 10 Days #20 tablet Forms: Patient Portal Access Quality - Quality Measures Quality Measures: N/A - Blood Pressure Screening Does Patient Have Any of the Following: No Blood Pressure Classification: Hypertensive Reading Systolic Measurement: 152 Diastolic Measurement: 90 Screening for High Blood Pressure: < Pre-Hypertensive BP, F/U Documented > [ G8950] Pre-Hypertensive Follow-up Interventions: Follow-up with rescreen every year.
[2018-02-14 17:26] LABS: BASO % 0.6 % (0-6); EOS % 1.1 % (0-6); HEMATOCRIT 48.7 % (42.0-52.0); HEMOGLOBIN 17.3 gm/dl (14.0-18.0); LYMPH % 25.7 % (16-45); MEAN CELL VOLUME 91.5 fl (81-97); MEAN CORPUSCULAR HEMOGLOBIN 32.5 pg (27-33); MEAN CORPUSCULAR HGB CONC 35.5 g/dl (32-36); MEAN PLATELET VOLUME 9.8 fl (7.4-10.4); MONO % 11.6 % (0-9); PLATELET COUNT 227 K/uL (130-400); RED BLOOD COUNT 5.32 M/uL (4.40-5.70); RED CELL DISTRIBUTION WIDTH 13.1 % (11.5-14.5); WHITE BLOOD COUNT W/O DIFF 10.6 K/uL (4.2-12.2)
[2018-02-14] MEDS: TMP/SMZ 160MG/800MG TAB PO ONE (18:14)
== END 2018-02-14 18:23 | disposition home or self-care (01) ==
LOC: ER 15:54
DX: S81.812A Laceration without foreign body, left lower leg, initial encounter (principal); L03.116 Cellulitis of left lower limb; W55.42XA Struck by pig, initial encounter; Y92.009 Unspecified place in unspecified non-institutional (private) residence as the place of occurrence of the external cause
CPT/HCPCS: 99282 ×2; 96365; 36416; 82948; 85027; J3370; J3490; J7050

== ENCOUNTER 2018-02-20 19:23 | Observation (INO) | payer BC ==
[2018-02-20] MEDS ORDERED: MORPHINE SULFATE 10 MG/ML VIAL IVP ONE (19:44)
[2018-02-20] MEDS ORDERED: AMPICILLIN SODIUM/SULBACTAM NA 3 G in 0.9 % SODIUM CHLORIDE 100ML 100 ML IVPB ONE (19:44)
[2018-02-20] MEDS ORDERED: 0.9 % SODIUM CHLORIDE 1000ML 1,000 ML IV SCH (19:45)
[2018-02-20] MEDS ORDERED: ONDANSETRON HCL IV 4 MG/2 ML VIAL IVP ONE (19:45)
--- NOTE | 2018-02-20 19:51 | Emergency Department Record ---
History of Present Illness - General Chief Complaint: Wound, check Stated Complaint: RECHECK-INFECTION SUTURES Time Seen by Provider: 02/20/18 19:23 Source: Patient Mode of arrival: Ambulatory Limitations: No limitations - History of Present Illness Initial Comments: 52 yo male presents to ED for evaluation of worsening redness and pain to the LLE for the past 4 days. Patient was seen and examined following injury that occurred by the tusk of a pot-belly pig 8 days ago, sutures were placed, and the patient was started on Augmentin. Patient returned 2 days later for worsening pain symptoms and erythema, received IV antibiotics, was told to return to ED for re-evaluation but due to co-pay did not. Patient called his PCP 4 days ago when his symptoms began to worsen, was told to come to the ED if his symptoms worsened. Patient reports similar symptoms previous that required IV antibiotics to cure his infection. Patient reports several sutures were previously removed, reports increased drainage and pain from the wound. MD Complaint: Wound re-check Onset/Timin -: Days(s) Initial Visit For: Animal bite Returns Today for: Wound recheck Symptoms Since Prior Visit: Worsening discharge, Worsening pain, Worsening redness, Worsening swelling Associated Symptoms: None - Related Data Previous Rx's Medication Instructions Recorded Acetaminophen [Tylenol 500Mg Tab] 500 mg PO Q6H PRN tablet 10/30/17 Amoxicillin/Potassium Clav 1 tab PO BID #14 tab 02/12/18 [Augmentin 875-125 Tablet] Ondansetron [Zofran Odt] 4 mg PO NOW #15 tab.rapdis 02/12/18 Sulfamethoxazole/Trimethoprim 1 each PO BID 10 Days #20 tablet 02/14/18 [Bactrim Ds Tablet] Allergies Allergy/AdvReac Type Severity Reaction Status Date / Time cephalexin Allergy Mild RASH Verified 02/14/18 16:00 Travel Screening - Travel/Exposure Within Last 30 Days Have you traveled within the last 30 days?: No Review of Systems Constitutional: Denies: Chills, Fever, Malaise, Night sweats Eyes: Denies: Eye discharge, Eye pain ENT: Denies: Congestion, Ear pain, Epistaxis Respiratory: Denies: Cough, Dyspnea Cardiovascular: Denies: Chest pain, Dyspnea on exertion Endocrine: Denies: Fatigue, Heat or cold intolerance Gastrointestinal: Denies: Abdominal pain, Vomiting Genitourinary: Denies: Dysuria, Incontinence, Retention Musculoskeletal: Reports: Myalgia. Denies: Arthralgia, Back pain, Gout, Joint swelling Skin: Reports: Change in color. Denies: Bruising, Change in hair/nails Neurological: Denies: Abnormal gait, Confusion, Headache, Seizure Psychiatric: Denies: Anxiety Hematological/Lymphatic: Denies: Anemia, Blood Clots Past Medical History - SOCIAL HISTORY Smoking Status: Never smoker Alcohol Use: None Drug Use: None - RESPIRATORY Hx Respiratory Disorders: Yes Comment:: seasonal allergies - CARDIOVASCULAR Hx Cardio Disorders: No - NEURO Hx Neuro Disorders: No - GI Hx GI Disorders: No - Hx Genitourinary Disorders: Yes Hx Kidney Stones: Yes - ENDOCRINE Hx Endocrine Disorders: No - MUSCULOSKELETAL Hx Musculoskeletal Disorders: Yes Hx Gout: Yes - PSYCH Hx Psych Problems: No - HEMATOLOGY/ONCOLOGY Hx Hematology/Oncology Disorders: No Family Medical History Any Significant Family History?: Yes Hx Heart Disease: Father, Mother Hx Resp Disorders: Mother Physical Exam - General General Appearance: Alert, Oriented x3, Cooperative, Moderate distress Limitations: No limitations - Head Head exam: Atraumatic, Normocephalic, Normal inspection Head exam detail: negative: Abrasion, Contusion, Rosenthal's sign, General tenderness, Hematoma, Laceration - Eye Eye exam: Normal appearance. negative: Conjunctival injection, Periorbital swelling, Periorbital tenderness, Scleral icterus - ENT Ear exam: negative: Auricular hematoma, Auricular trauma Nasal Exam: negative: Active bleeding, Discharge, Dried blood, Foreign body Mouth exam: negative: Drooling, Laceration, Muffled voice, Tongue elevation - Neck Neck exam: Normal inspection. negative: Meningismus, Tenderness - Respiratory Respiratory exam: Normal lung sounds bilaterally. negative: Rales, Respiratory distress, Rhonchi, Stridor - Cardiovascular Cardiovascular Exam: Regular rate, Normal rhythm, Normal heart sounds - GI/Abdominal GI/Abdominal exam: Soft. negative: Rebound, Rigid, Tenderness - Rectal Rectal exam: Deferred - exam: Deferred - Extremities Extremities exam: Tenderness, Other (Mild STS/erythema present to the area surrounding the patient's wound, mild sanguinous dishcarge is present from the wound.). negative: Calf tenderness, Pedal edema - Back Back exam: Denies: CVA tenderness (R), CVA tenderness (L) - Neurological Neurological exam: Alert, Oriented X3 - Psychiatric Psychiatric exam: Normal affect, Normal mood - Skin Skin exam: Other (See above). negative: Abrasion Type of lesion: negative: abrasion Course - Reevaluation(s) Reevaluation #1: 02/20/18 19:51 patient was seen and examined. Will obtain laboratory studies, administer analgesia and anti-emetics in ED. Will administer IV antibiotics and obtain CT imaging to exclude subcutaneous abscess. Likely admit for failed outpatient therapy with consult for general surgery in AM. Patient agrees with the plan of care as discussed. Reevaluation #2: 02/20/18 21:10 Laboratory studies were reviewed and are grossly unremarkable for an acute process. CRP 0.[address] Lower extremity pending to exclude underlying abscess formation. Pin overall improved, Unasyn has completed infusion as well. Reevaluation #3: 02/20/18 21:33 CT Lower extremity: Thickening of the overlying skin with subcutaneous edema present (1) air bubble present, no abscess No radio-opague FB identified, suture material present. Patient was updated on all results, will admit for IV antibiotics and possible surgical consultation in AM. Patient and his SO agree with the plan of care as discussed. Reevaluation #4: 02/21/18 06:50 Case was discussed with Gaye BHAGAT, will accept admission at this time. Medical Decision Making - Lab Data Result diagrams: 02/20/18 20:25 02/20/18 20:25 Disposition Disposition: Admit Clinical Impression: Cellulitis of lower leg Disposition: Still a Patient at [facility] Decision to Admit: Admit from ER Decision to Admit Date: 02/20/18 Decision to Admit Time: 21:35 Condition: (2) Stable Time of Disposition: 21:35 Quality - Quality Measures Quality Measures: N/A - Blood Pressure Screening Does Patient Have Any of the Following: No Blood Pressure Classification: Pre-Hypertensive BP Reading Systolic Measurement: 134 Diastolic Measurement: 82 Screening for High Blood Pressure: < Pre-Hypertensive BP, F/U Documented > [ [id number]] Pre-Hypertensive Follow-up Interventions: Referral to alternative/primary care provider.
[2018-02-20] MEDS ORDERED: HYDROMORPHONE HCL 2 MG/ML VIAL IVP ONE (20:16)
[2018-02-20 20:37] LABS: HEMATOCRIT 47.8 % (42.0-52.0); HEMOGLOBIN 16.7 gm/dl (14.0-18.0); MEAN CELL VOLUME 92.1 fl (81-97); MEAN CORPUSCULAR HEMOGLOBIN 32.2 pg (27-33); MEAN CORPUSCULAR HGB CONC 34.9 g/dl (32-36); MEAN PLATELET VOLUME 9.4 fl (7.4-10.4); PLATELET COUNT 324 K/uL (130-400); RED BLOOD COUNT 5.19 M/uL (4.40-5.70); RED CELL DISTRIBUTION WIDTH 12.5 % (11.5-14.5); WHITE BLOOD COUNT W/O DIFF 9.7 K/uL (4.2-12.2)
[2018-02-20 20:46] LABS: BLOOD UREA NITROGEN 16 mg/dL (6-20); CREATININE 1.1 mg/dL (0.7-1.2); EST GLOMERULAR FILTRATION RATE > 60 mL/min
[2018-02-20 20:47] LABS: TOTAL PROTEIN 7.5 g/dL (6.6-8.7)
[2018-02-20 20:49] LABS: GLUCOSE,RANDOM 88 mg/dL (74-109)
[2018-02-20 20:51] LABS: ALB/GLOB RATIO 1.2 (1.1-1.8); ALBUMIN 4.1 g/dL (4.0-5.0); ALKALINE PHOSPHATASE 107 U/L (40-129); ALT/SGPT 33 U/L (<41); AST/SGOT 27 U/L (10.0-50.0); C-REACTIVE PROTEIN 0.55 mg/dL (<0.5)
[2018-02-20 21:02] LABS: PLATELET ESTIMATE NORMAL (NORMAL)
[2018-02-20 21:09] LABS: ERYTHROCYTE SEDIMENTATION RATE 9 mm/hr (0-20)
[2018-02-20] MEDS ORDERED: ACETAMINOPHEN 500 MG TABLET PO PRN (21:47)
[2018-02-20] MEDS ORDERED: ONDANSETRON HCL IV 4 MG/2 ML VIAL IVP PRN (21:47)
[2018-02-21] MEDS: AMPICILLIN SODIUM/SULBACTAM NA 3 G in 0.9 % SODIUM CHLORIDE 100ML 100 ML IVPB SCH ×2 (01:15→08:15)
[2018-02-21] MEDS: HYDROMORPHONE HCL 2 MG/ML VIAL IVP PRN ×3 (01:19→09:15)
--- NOTE | 2018-02-21 08:06 | CT SCAN REPORT ---
EXAM: CT SCAN OF THE LEFT LOWER LEG WITHOUT CONTRAST HISTORY: LACERATION TO THE ANTERIOR SERRANO FROM A PET PIG'S TUSK ON 02/12/18. THE LACERATION WAS STITCHED SHUT. INCREASING REDNESS, PAIN AND DRAINAGE AROUND THE SUTURE SITE. TECHNIQUE: Standard CT imaging of the left lower leg was performed in the axial plane without contrast. Additional coronal and sagittal reformatted images were also performed. Comparison: Left tibia and fibula x-rays dated 02/12/18. FINDINGS: There is localized skin thickening within the anterior serrano at the site of previous laceration. There is a single small air bubble within the soft tissues deep to the site. There is faint curvilinear hyperdense material as well deep to the laceration. This is nonspecific and may represent suture material. There is no loculated fluid collection or discreet abscess. The underlying bones are unremarkable. There is no evidence for osteomyelitis. IMPRESSION: 1. FOCAL SKIN THICKENING AND SUBCUTANEOUS EDEMA WITHIN THE ANTERIOR SERRANO AT THE SITE OF PREVIOUS SKIN LACERATION. THERE IS A SINGLE AIR BUBBLE WITHIN THE SUBCUTANEOUS FAT AT THIS LEVEL WITH NO EVIDENCE FOR A DEFINED ABSCESS. 2. THERE IS A SMALL AMOUNT OF CURVILINEAR HYPERDENSE MATERIAL DEEP TO THE SKIN LACERATION. THIS IS NONSPECIFIC AND MAY REPRESENT SUTURE MATERIAL. 3. NO ACUTE OSSEOUS ABNORMALITY. JOB NUMBER: [id number] [facility]
[2018-02-21] MEDS: 0.9 % SODIUM CHLORIDE 1000ML 1,000 ML IV PRN ×2 (09:04→19:00)
[2018-02-21] MEDS: MONTELUKAST SODIUM 10MG TABLET PO SCH (09:04)
[2018-02-21] MEDS ORDERED: ALLOPURINOL 100 MG TAB PO SCH ×2 (10:00)
[2018-02-21] MEDS ORDERED: TMP/SMZ 160MG/800MG TAB PO SCH (10:00)
[2018-02-21] MEDS ORDERED: ALLOPURINOL 100 MG TAB PO ONE (10:15)
--- NOTE | 2018-02-21 10:41 | History & Physical ---
History of Present Illness - Date of Service Date of Service for History & Physical: 02/21/18 - History of Present Illness Admitting Diagnosis: Cellulitis LLE-failed outpatient therapy History of Present Illness: Mr. Kwon is a 52 year-old male who presented to ED on 02/20/18 for evaluation of worsening redness and pain to the LLE for the past 4 days. Patient was seen and examined following injury that occurred by the tusk of a pot-belly pig 8 days ago, 5 sutures were placed, and the patient was started on Augmentin, wound culture was obtained. Patient returned 2 days later for worsening pain symptoms and erythema, received IV antibiotics, was started on bactrim DS bid, and he was told to return to ED for re-evaluation but due to co- pay did not. Patient called his PCP 4 days ago when his symptoms began to worsen, was told to come to the ED if his symptoms worsened. Patient reports similar symptoms previous that required IV antibiotics to cure his infection. Patient reports several sutures were previously removed, reports increased drainage and pain from the wound. His history includes: asthma, seasonal allergies, renal stones, gout, previous admission on 10/28/17 for left arm cellulitis (due to klebsiella- was on vanco and zosyn IV, d/c'd on augmentin and bactrim). In the ED, his vitals were stable. CBC and CMP were unremarkable, CRP was 0.55. CT of lower extremity showed thickening of overlying skin with subcutaneous edema present, air bubble present, no abscess, no radio-opaque foreign body present, suture material is present. Pt. was admitted for IV antibiotic therapy for left lower leg cellulitis, failed OP PO antibiotics. Wound culture was ordered. 02/21/18: Pt. is resting in bed. He does report left lower extremity tenderness. Anterior mid-tibial wound present with tissue edema, erythema, [address] , wound was well-approximated, no drainage present at this time. Area of erythema is outlined in skin marker. Per wound culture that was obtained on and finalized on 02/19- wound is positive for klebsiella pneumoniae. Per sensitivity- bacteria is resistant to unasyn. Will start IV Zosyn 3.375mg q6h. Plan to continue IV abx for 24 hours and monitor wound, continue to monitor VS , am labs ordered for 02/22. Travel Screening - Travel/Exposure Within Last 30 Days Have you traveled within the last 30 days?: No - Travel/Exposure Within Last Year Have you traveled outside the [place] in the last year?: No - Additonal Travel Details Have you been exposed to anyone with a communicable illness?: No Review of Systems Constitutional: Denies: Chills, Fever, Malaise, Night sweats Eyes: Denies: Eye discharge, Eye pain ENT: Denies: Congestion, Ear pain, Epistaxis Respiratory: Denies: Cough, Dyspnea Cardiovascular: Denies: Chest pain, Dyspnea on exertion Endocrine: Denies: Fatigue, Heat or cold intolerance Gastrointestinal: Denies: Abdominal pain, Vomiting Genitourinary: Denies: Dysuria, Incontinence, Retention Musculoskeletal: Reports: Myalgia. Denies: Arthralgia, Back pain, Gout, Joint swelling Skin: Reports: Change in color. Denies: Bruising, Change in hair/nails Neurological: Denies: Abnormal gait, Confusion, Headache, Seizure Psychiatric: Denies: Anxiety Hematological/Lymphatic: Denies: Anemia, Blood Clots Past Medical History - SOCIAL HISTORY Smoking Status: Never smoker Alcohol Use: None Drug Use: None - RESPIRATORY Hx Respiratory Disorders: Yes Comment:: seasonal allergies - CARDIOVASCULAR Hx Cardio Disorders: No - NEURO Hx Neuro Disorders: No - GI Hx GI Disorders: No - Hx Genitourinary Disorders: Yes Hx Kidney Stones: Yes - ENDOCRINE Hx Endocrine Disorders: No - MUSCULOSKELETAL Hx Musculoskeletal Disorders: Yes Hx Gout: Yes - PSYCH Hx Psych Problems: No - HEMATOLOGY/ONCOLOGY Hx Hematology/Oncology Disorders: No Family Medical History Any Significant Family History?: Yes Hx Heart Disease: Father, Mother Hx Resp Disorders: Mother H&P Meds/Allergies - Allergies Allergies: Allergies Allergy/AdvReac Type Severity Reaction Status Date / Time cephalexin Allergy Mild RASH Verified 02/14/18 16:00 - Home Medications Previous Rx's Medication Instructions Recorded Acetaminophen [Tylenol 500Mg Tab] 500 mg PO Q6H PRN tablet 10/30/17 Amoxicillin/Potassium Clav 1 tab PO BID #14 tab 02/12/18 [Augmentin 875-125 Tablet] Ondansetron [Zofran Odt] 4 mg PO NOW #15 tab.rapdis 02/12/18 Sulfamethoxazole/Trimethoprim 1 each PO BID 10 Days #20 tablet 02/14/18 [Bactrim Ds Tablet] - Active Medications Active Medications: Current Medications Acetaminophen (Tylenol 500mg Tab) 500 mg PO Q6H PRN PRN Reason: PAIN - MILD (1-4) Allopurinol (Zyloprim) 300 mg PO DAILY SYDNI Allopurinol (Zyloprim) 200 mg PO ONCE SYDNI Hydromorphone HCl (Dilaudid) 0.5 mg IVP Q2H PRN PRN Reason: PAIN - MOD TO SEVERE (5-10) Last Admin: 02/21/18 09:15 Dose: 0.5 mg Sodium Chloride () 1,000 mls @ 125 mls/hr IV .Q8H PRN PRN Reason: LARGE VOLUME IV Last Admin: 02/21/18 09:04 Dose: 125 mls/hr Piperacillin Sod/Tazobactam (Sod 3.375 gm/ Sodium Chloride) 100 mls @ 200 mls/ hr IVPB Q6H SYDNI Montelukast Sodium (Singulair) 10 mg PO DAILY SYDNI Last Admin: 02/21/18 09:04 Dose: 10 mg Ondansetron HCl (Zofran) 4 mg IVP Q6H PRN PRN Reason: NAUSEA Tramadol HCl (Ultram) 50 mg PO Q6H PRN PRN Reason: PAIN - MOD TO SEVERE (5-10) Physical Exam - Vital Signs Vital Signs: Vital Signs - Last 24 Hrs Temp Pulse Resp BP Pulse Ox 02/21/18 08:30 60 15 02/21/18 07:45 98.1 F 55 L 18 129/77 99 02/21/18 06:00 97.7 F 62 18 134/82 98 02/20/18 22:10 16 02/20/18 21:47 98.1 F 72 18 143/82 100 02/20/18 21:46 62 24 135/96 98 02/20/18 20:30 98.1 F 77 20 147/91 97 - General General Appearance: Alert, Oriented x3, Cooperative, Mild distress Limitations: No limitations - Head Head exam: Atraumatic, Normocephalic, Normal inspection Head exam detail: negative: Abrasion, Contusion, Rosenthal's sign, General tenderness, Hematoma, Laceration - Eye Eye exam: Normal appearance. negative: Conjunctival injection, Periorbital swelling, Periorbital tenderness, Scleral icterus - ENT Ear exam: negative: Auricular hematoma, Auricular trauma Nasal Exam: negative: Active bleeding, Discharge, Dried blood, Foreign body Mouth exam: negative: Drooling, Laceration, Muffled voice, Tongue elevation - Neck Neck exam: Normal inspection. negative: Meningismus, Tenderness - Respiratory Respiratory exam: Normal lung sounds bilaterally. negative: Rales, Respiratory distress, Rhonchi, Stridor - Cardiovascular Cardiovascular Exam: Regular rate, Normal rhythm, Normal heart sounds - GI/Abdominal GI/Abdominal exam: Soft. negative: Rebound, Rigid, Tenderness - Rectal Rectal exam: Deferred - exam: Deferred - Extremities Extremities exam: Tenderness, Other (Mild STS/erythema present to the area surrounding the patient's wound, mild sanguinous dishcarge is present from the wound.). negative: Calf tenderness, Pedal edema - Back Back exam: Denies: CVA tenderness (R), CVA tenderness (L) - Neurological Neurological exam: Alert, Oriented X3 - Psychiatric Psychiatric exam: Normal affect, Normal mood - Skin Skin exam: Other (See above). negative: Abrasion Type of lesion: negative: abrasion Results - Labs Result Diagrams: 02/20/18 20:25 02/20/18 20:25 Labs Last 24 Hours: Laboratory Results - last 24 hr 02/20/18 02/20/18 20:25 20:25 WBC 9.7 RBC 5.19 Hgb 16.7 Hct 47.8 MCV 92.1 MCH 32.2 MCHC 34.9 RDW 12.5 Plt Count 324 MPV 9.4 Neutrophils % 61.0 Eosinophils % Not Reportable Basophils % Not Reportable Lymphocytes 30.0 Monocytes 9.0 Platelet Estimate Normal RBC Morphology Normal ESR 9 Sodium 141 Potassium 4.3 Chloride 105 Carbon Dioxide 24.0 Anion Gap 12.0 BUN 16 Creatinine 1.1 Estimated GFR > 60 Random Glucose 88 Calcium 9.0 Total Bilirubin 0.20 AST 27 ALT 33 Alkaline Phosphatase 107 C-Reactive Protein 0.55 H Total Protein 7.5 Albumin 4.1 Globulin 3.4 Albumin/Globulin Ratio 1.2 VTE H&P Assessment - Risk for VTE Risk for VTE: Yes Risk Level: Low Risk Assessment Date: 02/21/18 Risk Assessment Time: 10:42 VTE Orders Placed or Will Be Placed: Yes Plan - Detailed Diagnosis and Plan (1) Cellulitis of lower leg Current Visit: Yes Status: Acute Base Code: L03.119 - CELLULITIS OF UNSPECIFIED PART OF LIMB Comment: 02/21/18: -LLE anterior mid-tibial wound present with tissue edema, erythema, [address], wound was well-approximated, no drainage present at this time. Area of erythema is outlined in skin marker. -Per wound culture obtained on 02/14 and finalized on 02/19- wound is positive for klebsiella pneumoniae. Per sensitivity- bacteria is resistant to unasyn. -Will start IV Zosyn 3.375mg q6h. -Plan to continue IV abx for 24 hours and monitor wound, continue to monitor VS , am labs ordered for 02/22. (2) At risk for deep venous thrombosis Current Visit: Yes Status: Acute Base Code: Z91.89 - OTH PERSONAL RISK FACTORS, NOT ELSEWHERE CLASSIFIED Comment: 02/21/18: -Pt. at low risk for DVT due to decreased mobility secondary to LLE cellulitis and pain -lovenox 40mg SC qhs ordered for prophylaxis (3) Full code status Current Visit: No Status: Acute Base Code: Z78.9 - OTHER SPECIFIED HEALTH STATUS Comment: 02/21/18: -Pt. is a full code
[2018-02-21] MEDS: PIPERACILLIN SODIUM/TAZOBACTAM 3.375 GM in 0.9 % SODIUM CHLORIDE 100ML 100 ML IVPB SCH ×2 (12:25→17:47)
[2018-02-21] MEDS: TRAMADOL HCL 50 MG TABLET PO PRN ×2 (15:06→21:17)
[2018-02-21] MEDS ORDERED: ENOXAPARIN 40 MG/0.4 ML SYR SQ SCH (22:00)
[2018-02-22] MEDS: PIPERACILLIN SODIUM/TAZOBACTAM 3.375 GM in 0.9 % SODIUM CHLORIDE 100ML 100 ML IVPB SCH ×3 (00:03→12:47)
[2018-02-22] MEDS: TRAMADOL HCL 50 MG TABLET PO PRN ×2 (06:20→12:46)
[2018-02-22] MEDS: 0.9 % SODIUM CHLORIDE 1000ML 1,000 ML IV PRN (06:21)
[2018-02-22 07:02] LABS: BASO % 0.5 % (0-6); EOS % 1.9 % (0-6); GRAN % 54.5 % (47-80); HEMATOCRIT 45.5 % (42.0-52.0); HEMOGLOBIN 15.8 gm/dl (14.0-18.0); LYMPH % 32.5 % (16-45); MEAN CORPUSCULAR HEMOGLOBIN 32.6 pg (27-33); MEAN CORPUSCULAR HGB CONC 34.7 g/dl (32-36); MEAN PLATELET VOLUME 9.3 fl (7.4-10.4); MONO % 10.6 % (0-9); PLATELET COUNT 293 K/uL (130-400); RED BLOOD COUNT 4.84 M/uL (4.40-5.70); RED CELL DISTRIBUTION WIDTH 12.4 % (11.5-14.5); WHITE BLOOD COUNT W/O DIFF 7.4 K/uL (4.2-12.2)
[2018-02-22 07:25] LABS: ALB/GLOB RATIO 1.2 (1.1-1.8); ALBUMIN 3.9 g/dL (4.0-5.0); ALKALINE PHOSPHATASE 95 U/L (40-129); ALT/SGPT 30 U/L (<41); AST/SGOT 24 U/L (10.0-50.0); BLOOD UREA NITROGEN 11 mg/dL (6-20); CREATININE 1.1 mg/dL (0.7-1.2); EST GLOMERULAR FILTRATION RATE > 60 mL/min; GLUCOSE,RANDOM 94 mg/dL (74-109); TOTAL PROTEIN 7.2 g/dL (6.6-8.7)
[2018-02-22] MEDS ORDERED: ALLOPURINOL 100 MG TAB PO SCH (10:00)
[2018-02-22] MEDS: MONTELUKAST SODIUM 10MG TABLET PO SCH (10:32)
--- NOTE | 2018-02-22 13:21 | Discharge Note ---
VTE H&P Assessment - Risk for VTE Risk for VTE: Yes Risk Level: Low Risk Assessment Date: 02/21/18 Risk Assessment Time: 10:42 VTE Orders Placed or Will Be Placed: Yes Discharge Medications - Discharge Medications Prescriptions: Levofloxacin [Levaquin] 500 mg PO DAILY #10 tablet Sulfamethoxazole/Trimethoprim [Bactrim Ds Tablet] 1 each PO BID 10 Days #20 tablet Tramadol HCl [Ultram] 50 mg PO Q6H PRN #20 tablet PRN Reason: Pain - Mod To Severe (5-10) Home Medications: Ambulatory Orders Allopurinol 300 mg PO DAILY 10/27/17 [Last Taken 1 Day Ago ~02/13/18] Acetaminophen [Tylenol 500Mg Tab] 500 mg PO Q6H PRN tablet 10/30/17 [Last Taken 1 Day Ago ~02/13/18] Naproxen Sodium [Aleve] 2 tab PO Q12HR PRN 02/12/18 [Last Taken 1 Day Ago ~02/13] Ondansetron [Zofran Odt] 4 mg PO NOW #15 tab.rapdis 02/12/18 [Last Taken 1 Day Ago ~02/13/18] Allopurinol [Zyloprim] 300 mg PO DAILY tablet 02/22/18 [Last Taken Unknown] Levofloxacin [Levaquin] 500 mg PO DAILY #10 tablet 02/22/18 [Last Taken Unknown] Sulfamethoxazole/Trimethoprim [Bactrim Ds Tablet] 1 each PO BID 10 Days #20 tablet 02/22/18 [Last Taken Unknown] Tramadol HCl [Ultram] 50 mg PO Q6H PRN #20 tablet 02/22/18 [Last Taken Unknown] Discharge Note - Date Date of Discharge Note: 02/22/18 Disposition: Home, Self-Care Condition: (2) Stable Additional Instructions: follow up with Dr. Olsen in 2-7 days off work till he sees Dr. Olsen. elevate leg Forms: Patient Portal Access Activity at Discharge: Increase Activity as Tolerated Diet at Discharge: Regular Diet
--- NOTE | 2018-02-23 16:30 | Discharge Summary ---
DATE: 02/22/2018 at 8 a.m. DISCHARGE DIAGNOSES: 1. Cellulitis of the left lower leg. 2. Infected laceration of the left lower leg from a pet potbelly pig husk gouged him at his home. Sutures were placed approximately 10 days ago. The patient failed outpatient antibiotic therapy. ATTENDING PHYSICIAN: Narayan Fenton DO REASON FOR HOSPITALIZATION: This patient was seen 3 times in the emergency department; one to suture the laceration and two more times because of infection developing in the laceration. He was getting much worse. He was put into the hospital for IV antibiotics and started on Zosyn 3.75 every 8 hours. The sensitivities were reviewed which were done on the second ER visit on 02/14/2018 and he is sensitive to both Levaquin and Bactrim. He already has a prescription of Bactrim at home, so switched him off the Augmentin on discharge to Levaquin 500 mg once a day for 10 days and Bactrim double strength b.i.d. for 10 days. THERAPY PROVIDED: He was given IV Zosyn. The redness and swelling have gotten better. pressure steamer tender. Removed the last suture. The Emergency Department removed the rest of the sutures earlier at one of the ER visits. CONDITION ON DISCHARGE: Much improved. DISCHARGE INSTRUCTIONS: Follow up with Dr. Olsen in 2-7 days. Levaquin 500 mg daily for 10 days, Bactrim double strength b.i.d. for 10 days. Elevate the leg. Off work until he sees Dr. Olsen. [facility]
== END 2018-02-22 15:10 | disposition home or self-care (01) ==
LOC: ER 19:23 → MEDSURG 21:47
PROVIDERS: ADMIT Internal Medicine; ATTEND Internal Medicine
DX: L03.116 Cellulitis of left lower limb (principal); S81.852D Open bite, left lower leg, subsequent encounter; W55.41 Bitten by pig; Z86.14 Personal history of Methicillin resistant Staphylococcus aureus infection; Z87.442 Personal history of urinary calculi
CPT/HCPCS: 99285 ×2; 96365; 96375; 85025; 85651; 86140; 80053 ×2; 85027; 73700; G0378 ×3; J0295 ×2; J2405 ×2; J3490 ×2; J1170 ×2; 99220; J1650; J2543; J7030

== ENCOUNTER 2019-04-28 05:37 | Day surgery (SDC) | payer BC ==
[2019-04-28] MEDS ORDERED: PROPOFOL 10 MG/ML VIAL IV ONE (05:38)
[2019-04-28] MEDS ORDERED: LIDOCAINE 2% MDV (20MG/ML) 20ML VIAL IV ONE (05:38)
[2019-04-28] MEDS ORDERED: FENTANYL PF 100MCG/2ML VIAL IV ONE (05:38)
[2019-04-28] MEDS ORDERED: MIDAZOLAM HCL 2MG/2ML VIAL IV ONE (05:38)
[2019-04-28] MEDS ORDERED: MECLIZINE 25 MG TABLET PO ONE ×2 (05:48→06:00)
[2019-04-28] MEDS ORDERED: METOCLOPRAMIDE 10 MG TABLET PO ONE ×2 (05:48→06:00)
[2019-04-28] MEDS ORDERED: FAMOTIDINE 20MG TABLET PO ONE ×2 (05:48→06:00)
[2019-04-28] MEDS ORDERED: ACETAMINOPHEN 1,000 MG/100 ML BTL IVPB ONE (06:00)
[2019-04-28] MEDS ORDERED: CLINDAMYCIN 600MG/50ML PREMIX 600 MG/50 ML BAG IVPB ONE (06:00)
[2019-04-28] MEDS ORDERED: 0.9 % SODIUM CHLORIDE 1000ML 1,000 ML IV ONE (06:12)
[2019-04-28] MEDS ORDERED: Clindamycin 600mg vial 150 MG/ML VIAL IR ONE (07:39)
[2019-04-28] MEDS ORDERED: LIDOCAINE 1% W/EPI 1:100,000 MDV 20 ML VIAL SQ ONE (08:16)
[2019-04-28] MEDS ORDERED: BUPIVACAINE 0.5% W/EPI MPF 30 ML VIAL SQ ONE (08:16)
[2019-04-28] MEDS ORDERED: RINGERS SOLUTION,LACTATED 1,000 ML IV ONE (08:37)
[2019-04-28] MEDS ORDERED: HYDROCODONE/APAP 7.5/325MG TABLET PO ONE (09:07)
--- NOTE | 2019-04-28 11:00 | History and Physical Report ---
DATE OF EVALUATION: 04/27/2019 CHIEF COMPLAINT/HISTORY OF CHIEF COMPLAINT: This patient presents with a history of intractable lumbar radiculopathy. Due to the failure of therapy, a spinal cord stimulator trial was conducted on 03/28/2019 with 85% to 95% pain control. Due to the failure of therapy and the success of the trial, he is here for permanent implantation. Potential risks and side effects and complications reviewed and discussed. Interaction with a clinical specialist from the company is provided and reviewed. Procedure will be considered outpatient. Overnight stay may not be necessary. SHIVANID
--- NOTE | 2019-04-28 19:31 | RADIOLOGY REPORT ---
EXAMINATION: Thoracolumbar Spine Single View EXAM DATE: 04/28/2019 8:41 AM TECHNIQUE: AP view of the thoracolumbar spine. INDICATION: S/P SCS IMPLANT COMPARISON: MRI lumbar spine 08/13/2018. ENCOUNTER: Initial FINDINGS/IMPRESSION: Spine stimulator projects over the thoracolumbar spine with the electrode leads extending from T7 sup erior endplate to T9 inferior endplate extending 12 pairs of ribs. Right lower quadrant battery pack. Dictated by: Paulina Narayan MD on 04/28/2019 7:27 PM. .
--- NOTE | 2019-05-02 07:11 | Operative Note ---
DATE OF SURGERY: 04/28/2019 PREOPERATIVE DIAGNOSIS: Lumbar radiculopathy ICD 10 code M54.16 and M54.17. OPERATION: 1. Fluoroscopic-guided left epidural access T11-12, placement of spinal cord stimulator lead 1 [employer] Infinion 16, 6 electrodes positioned to the left of T7. 2. Fluoroscopic-guided epidural access left T12-L1, placement of spinal cord stimulator lead 2, a [employer] Infinion 16, 6 electrodes positioned right T7. 3. Complex programming of lead 1 over 20 minutes, followed by complex programming of lead 2 over 20 minutes. 4. Incision subcutaneous dissection and anchoring of leads 1 and leads 2 to supraspinous fascia with a [employer] locking anchor nonabsorbable suture. 5. Incision and subcutaneous dissection and creation of a subcutaneous pouch at right flank, for placement of generator, a [employer] programmable rechargeable WaveWriter. 6. Tunneling leads into generator pouch, each lead interfaced to generator. 7. Generator placed into pouch, placement of leads into pouch, closure of incisions using Stratafix suture, 2-0 fascia, 3-0 skin, Dermabond closure. 8. Complex recovery room programming internal generator home use 2 stimulators, 20 minutes. SURGEON: Tigre Woodruff D.O. PRIMARY: Miguel Ángel Olsen M.D. ANESTHESIA: Local sedation. ANESTHESIA PROVIDER: JOSSELINE. INDICATION: This patient presents with a history of intractable lumbar radiculopathy. Due to the failure of the above therapy, a spinal cord stimulator trial was conducted with 75 to 85% pain control. Due to the failure of therapy and the success of the trial, the patient presents today for implantation of permanent system. PROCEDURE: Intravenous line, vital sign monitoring, IV sedation, prepped and draped in sterile technique, under imaging the patient positioned prone, the epidural interspace left of the midline at T11-12 and 12-1 were both marked and the skin infiltrated, 2 centered curved access Epimed needles, to loss of resistance, the space was accessed at 11-12. The spinal cord stimulator lead 1, a [employer] Infinion 16 with 6 electrodes was positioned left of the midline at T7. With the access at 12-1, spinal cord stimulator lead 2, a [employer] Infinion 16, 6 electrodes, was positioned right at T7. With the patient awake, complex programming of lead 1 over 20 minutes, followed by complex programming of lead 2 over 20 minutes, resulted in complete pattern stimulation across the back and into the legs, the patient indicating we had all the areas of the pain. He was given the option to implant, continue to program or remove. He opted to implant. The question was repeated with the same response. The skin above and below the needles was infiltrated and an incision was made and subcutaneous dissection was conducted in the supraspinous fascia. The needles were removed and then each lead was anchored to the fascia with a nonabsorbable suture and a locking anchor. At the right flank, the site picked by the patient, the skin infiltrated, incision made and subcutaneous dissection was conducted to form a pouch for the generator; a [employer] programmable rechargeable WaveWriter of suitable size and depth. A tunneling tool was used to carry the leads into the generator pouch and then each lead was interfaced to the generator. Antibiotic irrigation and Bovie for hemostasis. The generator was placed in the pouch. The leads were placed into their pouch and then both incisions were closed with Stratafix suture 2-0 fascia and 3-0 skin. A Dermabond closure was then used to close and approximate the edges of the wounds. The patient was returned to the recovery room stable. There were no side effects from the procedure or the sedation. Complex programming when awake, re- establishing stimulation in all the appropriate areas of stimulation and pain control was performed in the recovery room for 20 minutes. Requesting discharge home. DISCHARGE INSTRUCTIONS: 1. The sites will remain clean and dry, no showering or bathing in any way that would disrupt the dressings. If it happens, contact the clinic. 2. Standard medications resumed, including the antibiotic Levaquin, 500 mg once a day for 14 days. 3. The office to contact the patient in 12 to 24 hours to set up a time in 7 to 10 days for us to evaluate the sites. 4. All other instructions were provided, with numbers to contact if problems given. He was then discharged. WILLI
== END 2019-04-28 09:24 | disposition home or self-care (01) ==
LOC: SUR 05:37
PROVIDERS: ATTEND Pain Medicine Interventional Pain Medicine
DX: M54.16 Radiculopathy, lumbar region (principal); M54.17 Radiculopathy, lumbosacral region; M10.9 Gout, unspecified
CPT/HCPCS: 63650; 63685; 01936; 72020; 95972; C1883; C1820; J3010; J7030; J7120